=== PATIENT | female | born 1985 | race Caucasian/White ===

== ENCOUNTER 2016-05-17 16:17 | Emergency (ER) | payer OTHER ==
[2016-05-17 16:41] LABS: URINE CULTURE PL NEEDED? NO; URINE SOURCE CLEAN CATCH
[2016-05-17 17:04] LABS: BILIRUBIN URINE NEGATIVE (NEGATIVE); BLOOD URINE NEGATIVE (NEGATIVE); CLARITY CLEAR (CLEAR); COLOR YELLOW; GLUCOSE URINE NEGATIVE (NEGATIVE); LEUKOCYTES URINE TRACE (NEGATIVE); NITRITE URINE NEGATIVE (NEGATIVE); PH URINE 6.5; PROTEIN URINE TRACE mg/dL (NEGATIVE); SP GRAVITY URINE 1.015; UROBILINOGEN URINE 1+(1 mg/dL)
[2016-05-17 17:05] LABS: URINE EPITHELIAL CELLS >10 /HPF (<10); URINE RBC <10 /HPF (<10); URINE WBC <10 /HPF (<10)
--- NOTE | 2016-05-17 17:55 | PROVIDER DOCUMENTATION ---
HPI-Abdominal Pain/GI Problem - General Source: patient - History of Present Illness-ABD Nature of Presenting Problems: 30 YOWF PRESENTS TO ED WITH C/O PT STATES RLQ PAIN. WITH NO RADIATION. X 3 DAYS. PT STATES NAUSEA W/ NO VOMITING. Abdominal Pain Onset Location: reports: RLQ, epigastric Pain Radiation: reports: no radiation Quality of Pain: reports: aching Severity in ED: reports: mild Onset/Duration: reports: 3 days ago Timing: reports: still present Activities at Onset: reports: light activity Exposure to sick contacts?: No Modifying Factors: improves with: nothing Dark Stools Present?: reports: none noticed Rectal Bleeding: reports: none Rectal Pain: reports: none Bruising or Bleeding Gums?: No Similar Symptoms Previously?: No Recently seen or treated by another doctor?: No <Vernon Gaitan - Last Filed: 05/17/16 18:02> <Mich Solis - Last Filed: 05/17/16 18:13> <Jose J Lobo - Last Filed: 05/17/16 19:01> - General Chief Complaint: Abdominal Pain Stated Complaint: ABD PAIN Time Seen by Provider: 05/17/16 17:41 Allergies/Adverse Reactions: Patient Allergies Allergy/AdvReac Type Severity Reaction Status Date / Time No Known Allergies Allergy Verified 01/06/14 18:29 Home Medications: Home Medication List Medication Instructions Recorded Confirmed Last Taken Type Acetaminophen with Codeine 1 each PO Q6H PRN PRN #18 tablet 05/17/16 Unknown Rx [Tylenol with Codeine #3 Tablet] Buspirone [Buspar] 10 mg PO DAILY 05/17/16 05/17/16 Unknown History Celecoxib 200 mg PO DAILY 05/17/16 05/17/16 Unknown History Citalopram Hydrobromide [Celexa] 10 mg PO DAILY 05/17/16 05/17/16 Unknown History Esomeprazole Magnesium [Nexium] 40 mg PO ACL #30 capsule. 05/17/16 Unknown Rx Ranitidine HCl [Zantac] 150 mg PO QHS #90 tablet 05/17/16 Unknown Rx Review of Systems - Adult - REVIEW OF SYSTEMS - ADULT Constitutional: denies: chills, fever Cardiovascular: denies: chest pain, palpitations, syncope Respiratory: denies: cough, shortness of breath, wheezing Gastrointestinal: reports: abdominal pain, nausea. denies: diarrhea, vomiting Musculoskeletal: denies: back pain, neck pain Neurological: denies: dizziness/vertigo, headache/migraines, syncope <Vernon Gaitan - Last Filed: 05/17/16 18:02> Past History - Adult - IMMUNIZATION STATUS Childhood Immunizations: See Nurse Assessment Flu Vaccine: See Nurse Assessment - SOCIAL HISTORY Smoking: cigarettes, greater than 1 pack/day Provider spent 3-5 mins advising pt. on dangers of tobacco.: Discussed manners to quit use, and f/u contacts for add'l counseling. Substance Use: denies Alcohol Use Frequency: never Living Situation: family <Vernon Gaitan - Last Filed: 05/17/16 18:02> - PAST MEDICAL HISTORY-ADULT Review of Records: reports: Old Records Reviewed, Nursing Assessment Review, Medications Reviewed, Social history reviewed & non-contributory. Major Childhood Illnesses: reports: denies history Cardiovascular: reports: denies history Respiratory: reports: denies history Gastrointestinal: reports: denies history Obstetrical/Gynecological: reports: denies history Genitourinary: reports: denies history Musculoskeletal: reports: denies history Neurological: reports: denies history Endocrine/Immune: reports: denies history Other Conditions: reports: denies history <Jose J Lobo - Last Filed: 05/17/16 19:01> Physical Exam-General - CONSTITUTIONAL General Appearance: alert, mild distress - EYES Eyes: PERRL/EOMI, pink conjunctivae - HEAD, EARS, NOSE, MOUTH & THROAT HENMT: normocephalic/atraumatic, moist mucous membranes - NECK Neck: non-tender, full range of motion, supple - RESPIRATORY Respiratory: chest non-tender, lungs clear, normal breath sounds - CARDIOVASCULAR Cardiovascular: normal peripheral pulses, regular rate, rhythm - GASTROINTESTINAL (ABDOMEN) Abdominal Exam: normal bowel sounds, non tender, soft - LYMPHATIC Lymphatic: no adenopathy - MUSCULOSKELETAL Back Exam: normal inspection, no CVA tenderness, no vertebral tenderness Extremity: normal range of motion, non-tender - SKIN Integumentary: normal color, normal turgor, warm/dry - NEUROLOGIC Neurologic: grossly normal - PSYCHIATRIC Psych/Mental Status: oriented x 3 <Vernon Gaitan - Last Filed: 05/17/16 18:02> Progress - CHANGE OF SHIFT REPORT (ED Provider) Report Given and Care Transferred to:: [facility] Time of Transfer: 18:02 Items Pending: Labs <Vernon Gaitan - Last Filed: 05/17/16 18:02> - CHANGE OF SHIFT REPORT (ED Provider) Report Given and Care Transferred to:: darrell Time of Transfer: 18:19 Items Pending: Labs <Mich Solis - Last Filed: 05/17/16 18:13> Departure <Vernon Gaitan - Last Filed: 05/17/16 18:02> - Departure Time of Disposition Order: 18:19 <Mich Solis - Last Filed: 05/17/16 18:13> - Departure Time of Disposition Order: 19:00 Certified Medical Emergency: Emergent <Jose J Lobo - Last Filed: 05/17/16 19:01> - Departure DIAGNOSIS: Gastritis Qualifiers: Gastritis type: unspecified gastritis Chronicity: acute Gastritis bleeding: presence of bleeding unspecified Qualified Code(s): K29.00 - Acute gastritis without bleeding Disposition: HOME 01 Condition: Fair Additional Instructions: no alcohol or antiinflammatories (MOTRIN, ASPIRIN, etc) till see watermelon harvesting supervisor Prescriptions: Esomeprazole Magnesium [Nexium] 40 mg PO ACL #30 capsule. Acetaminophen with Codeine [Tylenol with Codeine #3 Tablet] 1 each PO Q6H PRN PRN #18 tablet PRN Reason: Pain Ranitidine HCl [Zantac] 150 mg PO QHS #90 tablet Referrals: Aaron Capps [Primary Care Provider] - Sun Rodriguez MD [STAFF PHYSICIAN] - Attestation - Scribe Verification/Attestation Scribe:: Vernon Gaitan Acting as Scribe for:: Mich Solis Scribe documention review:: This chart was documented by a scribe and accurately reflects the service the provider performed and the decisions made by the provider. <Vernon Gaitan - Last Filed: 05/17/16 18:02> Physician Attestation - Physician Attestation I, the provider, attest to the following statement:: Mich Solis Physician documentation Attestation:: This documentation recorded by the scribe accurately reflects the service I personally performed and the decisions made by me. <Mich Solis - Last Filed: 05/17/16 18:13>
[2016-05-17] MEDS ORDERED: SODIUM CHLORIDE 0.9% INJ ONE (17:56)
[2016-05-17] MEDS ORDERED: PROTONIX IV ONE (17:56)
[2016-05-17] MEDS ORDERED: NS 1,000 ML IV ONE (17:57)
[2016-05-17] MEDS ORDERED: ZOFRAN IV ONE (17:57)
[2016-05-17 18:26] LABS: MANUAL DIFF NEEDED? NO
[2016-05-17 18:31] LABS: BASO% 0.2 % (0.0-0.8); EOS# 0.09 X1000 (0.0-0.7); HEMATOCRIT 38.7 % (37.0-47.0); HEMOGLOBIN 13.7 g/dL (12.0-16.0); IMM GRAN# 0.01 X1000 (0.0-0.04); IMM GRAN% 0.1 % (0.0-0.5); LYMPH# 1.41 X1000 (1.2-3.4); LYMPH% 15.7 % (20.5-51.1); MCH 32.2 PG (27-31); MCHC 35.4 g/dL (33-37); MCV 91.1 FL (81-99); MONO% 7.8 % (1.7-9.3); MPV 11.5 FL (7.4-10.4); NEUT% 75.2 % (42.2-75.2); PLT 152 X1000 (130-400); RBC 4.25 XMIL (4.2-5.4)
[2016-05-17 18:36] LABS: AGAP 9; ALBUMIN 4.6 g/dL (3.5-5.0); ALKALINE PHOSPHATASE 75 U/L (32-104); AMYLASE 46 U/L (20-200); BUN 12 mg/dL (8-22); CALCIUM 9.2 mg/dL (8.8-10.2); CHLORIDE 101 mmol/L (98-107); COSMO 274; GOT 16 U/L (10-30); GPT 10 U/L (10-36); LIPASE 14 U/L (13-60); POTASSIUM 3.4 mmol/L (3.5-5.1); SODIUM 137 mmol/L (136-145); TCO2 27 mmol/L (25-35); TOTAL PROTEIN 7.6 g/dL (6.3-8.3)
[2016-05-17] MEDS ORDERED: MAALOX PLUS LIQUID PO ONE (18:38)
[2016-05-17 19:26] VITALS: BP 136/86
== END 2016-05-17 19:22 | disposition home or self-care (01) ==
LOC: P.ED 16:17
DX: K29.00 Acute gastritis without bleeding (principal); R10.31 Right lower quadrant pain; R11.0 Nausea; R10.13 Epigastric pain; F17.210 Nicotine dependence, cigarettes, uncomplicated; Z79.899 Other long term (current) drug therapy; Z71.6 Tobacco abuse counseling
CPT/HCPCS: 80053; 81001; 82150; 83690; 85025; C9113; J2405; J7030; S0164